=== PATIENT | female | born 1995 | race Two or more races ===

== ENCOUNTER 2022-02-25 12:17 | Emergency (ER) | payer OTHER ==
[~2022-02-25] VITALS: Ht 154.9 cm; Wt 65.8 kg
== END 2022-02-25 16:16 ==
LOC: ER 12:17
DX: S10.83XA Contusion of other specified part of neck, initial encounter (principal); S00.83XA Contusion of other part of head, initial encounter; S20.229A Contusion of unspecified back wall of thorax, initial encounter; V43.52XA Car driver injured in collision with other type car in traffic accident, initial encounter; Y93.89 Activity, other specified; Y92.488 Other paved roadways as the place of occurrence of the external cause; M54.2 Cervicalgia; M54.89 Other dorsalgia

== ENCOUNTER → 2023-07-28 | Emergency (ER) | payer OTHER ==
[~2023-07-28] VITALS: Ht 154.9 cm; Wt 72.6 kg
== END | disposition home or self-care (01) ==
LOC: ER 09:16
DX: G43.819 Other migraine, intractable, without status migrainosus (principal)
CPT/HCPCS: 96372; 99284; J1885; J2405